=== PATIENT | female | born 1960 | race Caucasian/White ===

== ENCOUNTER 2017-03-26 16:25 | Outpatient (CLI) | payer OTHER | END 2017-04-01 | disposition home or self-care (01) | LOC: CANPRECLI → RADMAMWWP 04-01 13:46 | PROVIDERS: ATTEND Family Medicine ==

== ENCOUNTER 2021-01-30 10:04 | Emergency (ER) | payer OTHER ==
--- NOTE | 2021-01-30 10:21 | ED ---
Dizziness HPI - General Chief Complaint: Syncope Stated Complaint: covid+/syncope Time Seen by Provider: 01/30/21 10:04 Source: patient, EMS, RN notes reviewed Mode of arrival: EMS Limitations: no limitations - History of Present Illness Initial Comments: 61-year-old female was diagnosed with Covid 19 3 days ago with symptoms starting 2 days prior who had just had an IV started for an injection of cold antibodies when she almost passed out she developed bradycardia hypotension no overt chest pain she states she's had symptoms of cough no fevers chills or sweats however. She has of a history of asthma she states. She also states she has some chest tightness earlier with the Covid. She recovered to much improved during transport. MD Complaint: dizziness, lightheadedness, near syncope - Related Data Home Medications Medication Instructions Recorded Confirmed Albuterol Sulfate [Ventolin HFA] 2 puff INHALATION RT-Q4H PRN 01/30/21 01/30/21 Cefdinir [Omnicef] 300 mg PO BID 01/30/21 01/30/21 Fluticasone/Umeclidin/Vilanter 1 puff INHALATION RT-DAILY 01/30/21 01/30/21 [Trelegy Ellipta 200-62.5-25] Lisinopril [Zestril] 10 mg PO DAILY 01/30/21 01/30/21 predniSONE See Taper PO DAILY 01/30/21 01/30/21 Previous Rx's Medication Instructions Recorded Azithromycin [Zithromax Z-pack (6 250 mg PO DIRECTED 5 Days #6 tab 01/30/21 tabs)] Allergies Allergy/AdvReac Type Severity Reaction Status Date / Time Penicillins Allergy Rash/Hives Verified 01/30/21 10:47 Review of Systems ROS Statement: Those systems with pertinent positive or pertinent negative responses have been documented in the HPI. ROS Other: All systems not noted in ROS Statement are negative. Past Medical History Past Medical History: Hypertension History of Any Multi-Drug Resistant Organisms: None Reported Past Surgical History: Hysterectomy, Orthopedic Surgery Past Psychological History: No Psychological Hx Reported Smoking Status: Never smoker Past Alcohol Use History: Occasional Past Drug Use History: None Reported General Exam - General Exam Comments Initial Comments: This a well-developed well-nourished awake alert oriented 3 female Limitations: no limitations General appearance: alert, in no apparent distress Head exam: Present: atraumatic, normocephalic, normal inspection Eye exam: Present: normal appearance, PERRL, EOMI. Absent: scleral icterus, conjunctival injection, periorbital swelling ENT exam: Present: normal exam, mucous membranes moist Neck exam: Present: normal inspection. Absent: tenderness, meningismus, lymphadenopathy Respiratory exam: Present: decreased breath sounds. Absent: respiratory distress, wheezes, rales, rhonchi, stridor Cardiovascular Exam: Present: regular rate, normal rhythm, normal heart sounds. Absent: systolic murmur, diastolic murmur, rubs, gallop, clicks GI/Abdominal exam: Present: soft, normal bowel sounds. Absent: distended, tenderness, guarding, rebound, rigid Extremities exam: Present: normal inspection, full ROM, normal capillary refill. Absent: tenderness, pedal edema, joint swelling, calf tenderness Back exam: Present: normal inspection Neurological exam: Present: alert, oriented X3, CN II-XII intact Psychiatric exam: Present: normal affect, normal mood Skin exam: Present: warm, dry, intact, normal color. Absent: rash Course Vital Signs 01/30/21 10:08 Temperature 99 F Pulse Rate 85 Respiratory 20 Rate Blood Pressure 120/64 O2 Sat by Pulse 95 Oximetry EKG Findings - EKG Results: EKG: interpreted by [facility] EL, sinus rhythm, normal axis, normal QRS, normal ST/T, no acute changes (Sinus rhythm a 75. Interval 156 QRS 74 QT since QTC 372/[address]-T wave changes) Medical Decision Making - Medical Decision Making Evaluation patient finds that she feels much improved this time no further symptoms. She does have evidence of bilateral infiltrates also has elevated white blood cell count with the left shift. We did discuss all the findings. Patient will be discharged on antibiotics in addition to the other medications for COVID-19 she does have inhalers at home. - Lab Data Result diagrams: 01/30/21 10:31 01/30/21 10:31 Lab Results 01/30/21 01/30/21 01/30/21 Range/Units 10:31 10:31 10:31 WBC 11.0 H (3.8-10.6) k/uL RBC 5.29 (3.80-5.40) m/uL Hgb 15.4 (11.4-16.0) gm/dL Hct 47.7 H (34.0-46.0) % MCV 90.1 (80.0-100.0) fL MCH 29.1 (25.0-35.0) pg MCHC 32.3 (31.0-37.0) g/dL RDW 12.3 (11.5-15.5) % Plt Count 238 (150-450) k/uL MPV 7.9 Neutrophils % 79 % Lymphocytes % 14 % Monocytes % 6 % Eosinophils % 0 % Basophils % 0 % Neutrophils # 8.7 H (1.3-7.7) k/uL Lymphocytes # 1.5 (1.0-4.8) k/uL Monocytes # 0.7 (0-1.0) k/uL Eosinophils # 0.0 (0-0.7) k/uL Basophils # 0.0 (0-0.2) k/uL Sodium 137 (137-145) mmol/L Potassium 4.0 (3.5-5.1) mmol/L Chloride 102 (98-107) mmol/L Carbon Dioxide 25 (22-30) mmol/L Anion Gap 10 mmol/L BUN 21 H (7-17) mg/dL Creatinine 0.91 (0.52-1.04) mg/dL Est GFR (CKD-EPI)AfAm 78 (>60 ml/min/1.73 sqM) Est GFR (CKD-EPI)NonAf 68 (>60 ml/min/1.73 sqM) Glucose 122 H (74-99) mg/dL Calcium 9.2 (8.4-10.2) mg/dL Magnesium 1.8 (1.6-2.3) mg/dL Total Bilirubin 0.8 (0.2-1.3) mg/dL AST 36 (14-36) U/L ALT 28 (4-34) U/L Alkaline Phosphatase 107 (38-126) U/L Creatine Kinase 103 (30-135) U/L Troponin I <0.012 (0.000-0.034) ng/mL Total Protein 6.5 (6.3-8.2) g/dL Albumin 3.8 (3.5-5.0) g/dL TSH 2.280 (0.465-4.680) mIU/L - Radiology Data Radiology results: report reviewed (Image reviewed evidence of bilateral lower lobe infiltrates consistent with pneumonia), image reviewed Disposition Clinical Impression: Pneumonia due to COVID-19 virus, Vasovagal episode, Near syncope, Viral syndrome, Leukocytosis, Fever Disposition: HOME SELF-CARE Condition: Good Instructions (If sedation given, give patient instructions): Coronavirus Disease 2019 (COVID-19), Viral Pneumonia (ED), Leukocytosis (ED), Fever in Adults (ED) Prescriptions: Azithromycin [Zithromax Z-pack (6 tabs)] 250 mg PO DIRECTED 5 Days #6 tab Is patient prescribed a controlled substance at d/c from ED?: No Referrals: Bulmaro Weber DO [Primary Care Provider] - 1-2 days
--- NOTE | 2021-01-30 10:38 | XR ---
EXAMINATION TYPE: XR chest 2V DATE OF EXAM: 01/30/2021 COMPARISON: NONE HISTORY: Syncope, Covid symptoms TECHNIQUE: Frontal and lateral views of the chest are obtained. FINDINGS: Suspect there is some patchy density in the right mid and lower lung. There is overlying a rtifact. No evident pneumothorax or pleural effusion. Cardiac mediastinal silhouette within normal li mits accounting for technique. Bones are remarkable for arthropathy in the acromioclavicular joints. IMPRESSION: Correlate for pneumonia. Follow-up suggested.
[2021-01-30 10:54] LABS: Basophils % (A) 0 %; Eosinophils % (A) 0 %; HCT 47.7 % (34.0-46.0); HGB 15.4 gm/dL (11.4-16.0); Lymphocytes # (A) 1.5 k/uL (1.0-4.8); Lymphocytes % (A) 14 %; MCH 29.1 pg (25.0-35.0); MCHC 32.3 g/dL (31.0-37.0); MCV 90.1 fL (80.0-100.0); Mean Platelet Volume 7.9; Monocytes # (A) 0.7 k/uL (0-1.0); Monocytes % (A) 6 %; Neutrophils # (A) 8.7 k/uL (1.3-7.7); Neutrophils % (A) 79 %; Platelet Count 238 k/uL (150-450); RBC 5.29 m/uL (3.80-5.40); RDW 12.3 % (11.5-15.5)
[2021-01-30 11:15] LABS: ALT 28 U/L (4-34); AST 36 U/L (14-36); African American GFR (CKD) 78 (>60 ml/min/1.73 sqM); Albumin 3.8 g/dL (3.5-5.0); Alkaline Phosphatase 107 U/L (38-126); Anion Gap 10 mmol/L; Blood Urea Nitrogen 21 mg/dL (7-17); Calcium 9.2 mg/dL (8.4-10.2); Carbon Dioxide 25 mmol/L (22-30); Chloride 102 mmol/L (98-107); Creatine Kinase 103 U/L (30-135); Glucose 122 mg/dL (74-99); Magnesium 1.8 mg/dL (1.6-2.3); Non-African American GFR(CKD) 68 (>60 ml/min/1.73 sqM); Sodium 137 mmol/L (137-145); Total Bilirubin 0.8 mg/dL (0.2-1.3); Total Protein 6.5 g/dL (6.3-8.2)
[2021-01-30] MEDS ORDERED: SODIUM CHLORIDE 0.9% 50 ML IVPB ONE (12:15)
[2021-01-30] MEDS ORDERED: CASIRIVIMAB (REGN10933) (EUA) 600 MG, IMDEVIMAB (REGN10987) (EUA) 600 MG in SODIUM CHLO... IVPB ONE (12:15)
[2021-01-30] MEDS ORDERED: AZITHROMYCIN 500 MG TAB PO STA (12:20)
[2021-01-30 14:01] VITALS: BP 121/74; PULSE 74; RESP 18; TEMP 97.8
== END 2021-01-30 14:02 | disposition home or self-care (01) ==
LOC: EC 10:04
DX: U07.1 COVID-19 (principal); J12.82 Pneumonia due to coronavirus disease 2019; D72.829 Elevated white blood cell count, unspecified; R55 Syncope and collapse; I10 Essential (primary) hypertension; Z79.899 Other long term (current) drug therapy
CPT/HCPCS: 36415; 93005; 80053; 84443; 82550; 83735; 84484; 85025; 71046; 99285; Q0244